=== PATIENT | male | born 1965 | race African-American/Black ===

== ENCOUNTER → 2016-12-15 | Outpatient (CLI) | payer BC ==
--- NOTE | ~2016-12-15 | CR230 ---
[facility] A Service of [facility] & [facility] RADIOLOGY TEXT RESULTS PATIENT: BENNY CAMPA LOCATION: [facility] : 65 UNIT #: [id number] AGE: [address]: FABI WILLIS APRN SEX: M ORDER DR: [id number] [facility] [address] [place], [place] [address] [id number] O MR#: [id number] Acc #: [id number] NAME: BENNY CAMPA : 1965 SEX: M STUDY DATE/TIME: 12/15/2016 17:34 UNIT: [facility] ROOM: STUDY DESCRIPTION: CR Shoulder Min 2 View Rt Attending Physician: Fabi Willis Aprn Referring Physician: Ann Sloan Ordering Physician: Fabi Willis Aprn Primary Care Physician: Fabi Willis Aprn MEDICAL IMAGING REPORT This report is preliminary unless electronic signature is present EXAM Right shoulder 3 views, 12/15/2016 HISTORY Shoulder pain radiating down the arm for 2 weeks. FINDINGS 3 views of the shoulder are submitted. There are some cystic degenerative changes in the greater tuberosity. Bony elements otherwise appear intact. No fractures are seen. CONCLUSION Cystic degenerative change in the greater tuberosity, otherwise negative. Dictated by... Irwin Talamantes M.D. THIS IS AN ELECTRONICALLY VERIFIED REPORT Irwin Talamantes M.D. at 12/19/2016 2:45 PM BRUNO/rosalva TD: 12/15/2016 21:22 JOB #: [id number] MEDICAL IMAGING REPORT Page 1 of 1 COPY
== END | disposition home or self-care (01) ==
LOC: CRAD 16:52
DX: M25.511 Pain in right shoulder (principal); M19.011 Primary osteoarthritis, right shoulder
CPT/HCPCS: 73030